=== PATIENT | male | born 1955 | race Caucasian/White ===

== ENCOUNTER → 2017-03-11 12:06 | Outpatient (CLI) | payer OTHER, SELFPAY ==
[2017-03-11 11:59] VITALS: BP 150/96; PULSE 70; RESP 18; TEMP 36.1; O2SAT 97; BMI 31.9
[2017-03-11] MEDS: Rabies Vaccine,Human Diploid 2.5 UNITS Vial IM (12:01)
== END ==
PROVIDERS: Family Provider Internal Medicine; PCP Internal Medicine; Visit Provider Emergency Medicine
DX: Z23 Encounter for immunization (principal)
CPT/HCPCS: 90675; 96372

== ENCOUNTER → 2017-03-15 17:40 | Outpatient (CLI) | payer OTHER, SELFPAY ==
[2017-03-15 17:14] VITALS: BP 161/91; PULSE 71; RESP 16; TEMP 36.1; O2SAT 98; BMI 31.9
== END ==
PROVIDERS: Family Provider Internal Medicine; PCP Internal Medicine; Visit Provider Emergency Medicine
DX: Z23 Encounter for immunization (principal)
CPT/HCPCS: 90675; 96372

== ENCOUNTER → 2017-03-22 19:46 | Outpatient (CLI) | payer OTHER, SELFPAY ==
[2017-03-22 19:20] VITALS: BP 150/75; PULSE 63; RESP 18; TEMP 36.7; O2SAT 100; BMI 27.5
[2017-03-22] MEDS: Rabies Vaccine,Human Diploid 2.5 UNITS Vial IM (19:20)
== END ==
PROVIDERS: Family Provider Internal Medicine; PCP Internal Medicine; Visit Provider Emergency Medicine
DX: Z23 Encounter for immunization (principal)
CPT/HCPCS: 90675; 96372

== ENCOUNTER 2021-06-17 10:14 | Emergency (ER) | payer OTHER, SELFPAY ==
[2021-06-17 10:14] VITALS: BP 173/104; PULSE 70; RESP 16; TEMP 36.3; O2SAT 98; BMI 31.8
--- NOTE | 2021-06-17 10:27 | CT_ITS ---
STUDY: CT ABDOMEN AND PELVIS WITHOUT CONTRAST REASON FOR EXAM: Male, 66 years old. Left flank pain and nausea. History of kidney stones. RADIATION DOSAGE (If Supplied By Facility): CTDIvol = ( 15.76 ) mGy, DLP = ( 866.04 ) mGycm TECHNIQUE: Transaxial images were obtained from the dome of the diaphragm to the symphysis pubis without oral contrast, and without intravenous contrast. Sagittal and coronal images were reconstructed. Individualized dose optimization techniques were used for this CT. COMPARISON: None. FINDINGS: The visualized lung bases are unremarkable. The visualized portions of the heart are within normal limits. There is decreased attenuation of the liver consistent with steatosis. Small gallstones. Normal spleen. Normal pancreas. Normal bilateral adrenal glands. There is a 5 mm calculus in the lower pole calyx of the right kidney as well as a 3 mm calculus in the upper pole calyx of the right kidney. Mild degree of left hydronephrosis and hydroureter due to a 7 mm calculus in the proximal left ureter. There is evidence of left perinephric and periureteric stranding. Normal visualized stomach. Normal small intestine. There are multiple colonic diverticula consistent with diverticulosis. The appendix is visualized and appears normal. There is scattered atherosclerotic calcification of the abdominal aorta, without a demonstrated aneurysm. Normal inferior vena cava. There is borderline retroperitoneal lymphadenopathy with enlarged nodes no greater than 10mm in the short axis diameter. Normal urinary bladder. The prostate measures 4 cm x 5 cm. Calcifications are seen within it. Small right inguinal hernia containing fat. There are diffuse degenerative changes of the visualized lumbar spine. CT/Abdomen/Pelvis without Cont IMPRESSION: 7 mm calculus in the proximal portion of the left ureter causing mild degree of left hydronephrosis and left proximal hydroureter ureter. Left perinephric stranding. Nonobstructive right intrarenal calculi. Diffuse fatty infiltration of the liver. I suspect small gallstones. Electronically Signed: Gianni Valentine MD at 11:16 EDT ,
--- NOTE | 2021-06-17 10:32 | EX.ED.DYSGE1 ---
HPI History of Present Illness Chief Complaint: Flank Pain Informant: patient Narrative Narrative: 66-year-old male presenting to the emergency room with left flank pain. Patient states that symptoms began abruptly this morning and rapidly became worse but are now improving. When the pain was at its most he was very nauseous. He states the pain reminded him very much of when he had a kidney stone in the past. He states that he did not require any surgery for it. He denies any blood in the urine or difficulty/change in urination. No change in bowel habits. No reported fevers. PFSH PFS Medical History (Updated 06/17/21 @ 11:[address] Bret Rosen DO) Kidney stone Ureterolithiasis Home Medications ondansetron 4 mg PO Q6H PRN PRN #10 tab 06/17/21 [Rx Last Taken Unknown] oxycodone-acetaminophen 1 tab PO Q6H PRN PRN 5 Days #20 tablet 06/17/21 [Rx Last Taken Unknown] Allergy/AdvReac Type Severity Reaction Status Date / Time Sulfa (Sulfonamide Allergy Unknown Unknown Verified 06/17/21 10:15 Antibiotics) Social History (Updated 06/17/21 @ 10:[address] Bret Rosen DO) current gender identity: male Smoking Status: Never smoker ROS [facility] ED Constitutional Constitutional ED: Denies chills, fever(s) or weight loss Eyes Eyes: Denies change in vision or diplopia ENT ENT ED: Denies ear pain, rhinorrhea or sore throat Cardiovascular Cardiovascular: Denies chest pain, orthopnea, palpitations or racing heartbeat Respiratory/Chest Respiratory/Chest: Denies cough, dyspnea or orthopnea Gastrointestinal Gastrointestinal: Reports abdominal pain and nausea; Denies diarrhea or vomiting Genitourinary Genitourinary ED: Denies dysuria, hematuria or urinary frequency Musculoskeletal Musculoskeletal: Reports back pain; Denies arthralgias or myalgias Integumentary Denies abscess or rash Neurologic Neurologic: Denies headache(s) or weakness Psychiatric Psychiatric: Denies anxiety, depression, suicidal ideation or suicidal thoughts Endocrine Endocrinology: Denies polydipsia, polyphagia or polyuria Allergic/Immunologic Allergic/Immunologic ED: Denies mouth swelling, tongue swelling or urticaria EXAM Physical Exam Const Vital Signs: 06/17/21 10:14 Temperature 97.3 F L Temperature Source Temporal Pulse Rate 70 Respiratory Rate 16 Blood Pressure 173/104 H Blood Pressure Mean 127 Pulse Ox 98 Oxygen Delivery Method Room Air Positive well nourished and well developed General Appearance ED: well developed HEENT Reports normocephalic, head/scalp atraumatic, TM's clear and moist mucous membranes Negative for trauma Tympanic Membrane ED: Yes TM's clear Eyes PERRL and EOMs intact bilaterally Neck no lymphadenopathy, supple and no JVD Resp normal respiratory effort and clear to auscultation bilaterally Cardio regular rate, regular rhythm and no murmurs GI normal to inspection, nondistended, normoactive bowel sounds and non-tender Palpation: soft Back/Spine no CVA tenderness and normal ROM Extremity normal to inspection General Extremety ED: Negative for edema General Extremity: Negative for edema Neuro oriented x3 and CN's II-XII intact bilaterally Sensorium / Orientation: alert Motor Exam: strength 5/5 throughout Psych mental status grossly normal Mood & Affect: Negative for depressed or tearful Skin no rashes or lesions noted and no wounds MDM MDM MDM Narrative Medical decision making narrative: White count is 9.3 with a creatinine of 1.05. CT pelvis demonstrates a 7 mm proximal ureteral stone on the left with associated hydronephroureter. Patient received a dose of Toradol and has been resting comfortably. I reviewed the case with on-call urologist Dr. Stock. Plan is to discharge the patient home with pain and nausea medication and have him follow-up in the office. Lab Data Attestation: I reviewed the patient's lab results. Labs: Laboratory Results - last 24 hr 06/17/21 06/17/21 10:39 10:39 WBC 9.3 RBC 5.42 Hgb 17.4 H Hct 46.6 MCV 86.0 MCH 32.1 H MCHC 37.3 H RDW Std Deviation 37.6 RDW Coeff of Jacki 12.0 Plt Count 208 MPV 10.5 Immature Gran % (Auto) 0.300 Neut % (Auto) 78.3 H Lymph % (Auto) 17.4 L [place] % (Auto) 3.1 Eos % (Auto) 0.4 Baso % (Auto) 0.5 Absolute Neuts (auto) 7.3 Absolute Lymphs (auto) 1.62 Nucleated RBC % 0 Sodium 138 Potassium 3.9 Chloride 104 Carbon Dioxide 30.0 Anion Gap 4 L BUN 17 Creatinine 1.05 Estim Creat Clear Calc 67.86 Est GFR (MDRD) Af Amer 91 Est GFR (MDRD) Non-Af 75 BUN/Creatinine Ratio 16.2 Glucose 129 H Calcium 8.9 Radiography Diagnostic Testing: Clinical Impression(s) from Imaging Studies Abdomen/Pelvis CT 06/17/21 10:27 IMPRESSION: 7 mm calculus in the proximal portion of the left ureter causing mild degree of left hydronephrosis and left proximal hydroureter ureter. Left perinephric stranding. Nonobstructive right intrarenal calculi. Diffuse fatty infiltration of the liver. I suspect small gallstones. Electronically Signed: Gianni Valentine MD at 11:16 EDT , Discharge Plan Triage Chief Complaint: Flank Pain ED Provider: Bret Rosen Dx/Rx/DC Orders Clinical Impression: Ureterolithiasis Instructions: ED Kidney Stone w/ Colic Prescriptions: New oxycodone-acetaminophen [oxycodone-acetaminophen] 1 TABLET tablet 1 tab PO Q6H PRN PRN (Reason: pain) 5 Days Qty: 20 RF: 0 ondansetron [ondansetron] 4 MG tablet 4 mg PO Q6H PRN PRN (Reason: Nausea) Qty: 10 RF: 0 Primary Care Provider: Laura Castelan Referrals: Omar Stock MD [STAFF PHYSICIAN] - As soon as possible Laura Castelan DO [Primary Care Provider] - Disposition Disposition: Home, Self Care
[2021-06-17] MEDS: Ketorolac 30 MG/ML Syringe IV (10:37)
[2021-06-17 10:48] LABS: Absolute Lymphocyte Count 1.62 X10^3/uL (0.83-4.51); Absolute Neutrophil Count 7.3 X10^3/uL (2.0-7.7); Basophil# 0.05 X10^3/uL; Basophil% 0.5 % (0-1); Eosinophil# 0.04 X10^3/uL; Eosinophils% 0.4 % (0-5); Hematocrit 46.6 % (40-54); Hemoglobin 17.4 g/dL (13.0-16.5); Lymphocyte # 1.62 X10^3/ul (0.83-4.51); Lymphocyte % 17.4 % (19-41); Mean Corp Hgb Conc 37.3 g/dL (32-36); Mean Corpuscular Hgb 32.1 pg (27.0-32.0); Mean Platelet Vol. 10.5 fl (6.2-12.0); Monocyte# 0.29 X10^3/uL; Monocyte% 3.1 % (0-10); NRBC Flagged by Analyzer 0 % (0-5); Neutrophil # 7.28 X10^3/uL (2.7-7.7); Neutrophil % 78.3 % (47-70); Platelet Count 208 K/mm3 (150-450); RBC Distribution Width SD 37.6 fl (35.1-43.9); Red Blood Count 5.42 M/mm3 (4.6-6.2); White Blood Count 9.3 K/mm3 (4.4-11.0)
[2021-06-17 11:00] LABS: Anion Gap 4 (5-15); BUN 17 mg/dL (7-18); BUN/Creat Ratio 16.2 RATIO (10-20); Calcium,Total 8.9 mg/dL (8.5-10.1); Chloride 104 mmol/L (98-107); Creatinine, Serum 1.05 mg/dL (0.70-1.30); EST Glomerular Filtration Rate 75 mL/min (>60); Est Glom Filt Rate - Afr Amer 91 mL/min (>60); Estimated Creatinine Clearance 67.86 ml/min; Glucose 129 mg/dL (74-106); Potassium 3.9 mmol/L (3.5-5.1); Sodium Level 138 mmol/L (136-145)
[2021-06-17 12:05] LABS: Color, Urine Yellow (Yellow); Glucose, Dipstick Normal (Normal); Ketone-Dipstick 5 mg/dl (Negative); Leukocyte Esterase-Dipstick 25 /ul (Negative); Nitrite-Dipstick Negative (Negative); Occult Blood-Urine 150 /ul (Negative); Protein-Dipstick 30 mg/dl (Negative); Specific Gravity, Urine 1.015 (1.002-1.030); Urine Bilirubin Dipstick Negative (Negative); Urine Clarity Clear (Clear); Urine Urobilinogen Normal (Normal); Urine pH 6.5 (5.0 - 8.0)
[2021-06-17 12:23] LABS: Bacteria 1+ /hpf (None Seen); Mucous, Urine 1+ /hpf (<or=2+); Red Blood Cells-Urine 25-50 SEEN /hpf (0-5); Squamous Epithelial Cells - UA 0-5 SEEN /hpf (0-5); White Blood Cells 5-10 SEEN /hpf (0-5)
== END 2021-06-17 12:03 | disposition home or self-care (01) ==
PROVIDERS: Emergency Provider Emergency Medicine; PCP Internal Medicine; Visit Provider Emergency Medicine
DX: N13.2 Hydronephrosis with renal and ureteral calculous obstruction (principal); Z79.899 Other long term (current) drug therapy; Z87.442 Personal history of urinary calculi
CPT/HCPCS: 74176; 80048; 81001; 85025; 96374; 99283; A4216

== ENCOUNTER 2021-06-19 11:42 | Observation (INO) | payer OTHER, SELFPAY ==
[2021-06-19] VITALS (7 sets, daily range): BP systolic 140–185; BP diastolic 83–114; PULSE 68–88; RESP 14–18; TEMP 36.3–37.1; O2SAT 92–99; BMI 31.9; BMI 33.5
--- NOTE | 2021-06-19 11:52 | EX.ED.GUMALE ---
HPI History of Present Illness Chief Complaint: Abd Pain Narrative Narrative: 56-year-old male presenting with left flank pain. Diagnosed with 7 mm kidney stone 2 days ago. He states he is taking oxycodone and still having breakthrough pain. He spoke with Dr. Stock prior to coming. Patient states his pain comes almost hourly. Breakthrough his pain medication. Patient denies any fever, chills. PFSH PFSH Medical History Kidney stone Ureterolithiasis Allergy/AdvReac Type Severity Reaction Status Date / Time Sulfa (Sulfonamide Allergy Unknown Unknown Verified 06/19/21 11:45 Antibiotics) Social History Smoking Status: Never smoker ROS ROS ED Constitutional Constitutional ED: Reports sweats; Denies chills or fever(s) Eyes Eyes: Denies blurry vision ENT ENT ED: Denies rhinorrhea or sore throat Cardiovascular Cardiovascular: Denies chest pain or palpitations Respiratory/Chest Respiratory/Chest: Denies cough or dyspnea Gastrointestinal Gastrointestinal: Reports nausea; Denies abdominal pain, diarrhea or vomiting Genitourinary Genitourinary ED: Reports hematuria; Denies dysuria Musculoskeletal Musculoskeletal: Reports other Details: Left flank pain Integumentary Denies rash Neurologic Neurologic: Denies headache(s) EXAM Physical Exam Const Vital Signs: 06/19/21 11:43 06/19/21 12:11 Temperature 97.4 F L 98.7 F Temperature Source Temporal Temporal Pulse Rate 77 79 Respiratory Rate 18 18 Blood Pressure 176/100 H 157/83 H Blood Pressure Mean 125 107 Pulse Ox 95 99 Oxygen Delivery Method Room Air Room Air Positive well nourished General Appearance ED: NAD; Negative for pallor HEENT Reports moist mucous membranes normocephalic and atraumatic Eyes PERRL and EOMs intact bilaterally General Eye ED: Negative for pale conjunctiva or scleral icterus Resp normal respiratory effort and clear to auscultation bilaterally Cardio regular rate and regular rhythm GI non-tender Palpation: soft no CVA tenderness Neuro oriented x3, CN's II-XII intact bilaterally, moves all extremities, no focal motor deficits and no sensory deficits noted Sensorium / Orientation: alert Psych mental status grossly normal Skin General Skin Exam: Negative for jaundice or pallor Lesions: no lesions Rashes: no rashes MDM MDM MDM Narrative Medical decision making narrative: Patient presenting with left flank pain which has been persistent even with oxycodone. I spoke with urology who recommend admitting the patient and they will take him to the OR later today to break up the stone and place a stent. Patient amenable to this. He is given morphine and Zofran. He is tested for COVID and is negative. Patient recently had lab work the other day which is within normal limits. CT scan was reviewed and shows a 7 mm proximal ureter stone with hydronephrosis and hydroureter. Urinalysis showed hematuria without evidence of infection. Patient transferred to the floor in stable condition. Impression: 1. Left-sided 7 mm proximal ureteral stone 2. Intractable flank pain 3. Hematuria 4. Left-sided hydronephrosis 5. Left-sided hydroureter Lab Data Attestation: I reviewed the patient's lab results. Discharge Plan Triage Chief Complaint: Abd Pain ED Provider: Madhu Reis Dx/Rx/DC Orders Primary Care Provider: Laura Castelan
[2021-06-19] MEDS: Morphine 4 MG/ML Syringe IV (12:09)
[2021-06-19] MEDS: Ondansetron 4 MG/2 ML Vial IV (12:09)
--- NOTE | 2021-06-19 15:46 | HP.PCM_ITS ---
HPI - General General Date of Admission: 06/19/21 HPI Narrative HIPOLITO TERRY, is a 66 M who presents from the emergency room is admitted directly from the emergency room with severe pain from a stone in the proximal left ureter plan to proceed with stent placement and shockwave lithotripsy today in the operating room at [facility]. [facility] Medical History Kidney stone Ureterolithiasis Home Medications ciprofloxacin HCl [Cipro] 500 mg PO BID #6 tab 06/19/21 [Rx Last Taken Unknown] ondansetron 4 mg PO Q6H PRN PRN 06/19/21 [History Last Taken 06/19/21] oxycodone-acetaminophen 1 tab PO Q4H PRN 7 Days #14 tab 06/19/21 [Rx Last Taken Unknown] oxycodone-acetaminophen 1 tab PO Q6H PRN PRN 06/19/21 [History Last Taken ] Allergy/AdvReac Type Severity Reaction Status Date / Time Sulfa (Sulfonamide Allergy Unknown Unknown Verified 06/19/21 11:45 Antibiotics) Social History Smoking Status: Never smoker Vital Signs Vital Signs Vital Signs: 06/19/21 11:43 06/19/21 12:11 06/19/21 14:20 Temperature 97.4 F L 98.7 F 97.9 F Temperature Source Temporal Temporal Oral Pulse Rate 77 79 68 Respiratory Rate 18 18 18 Blood Pressure 176/100 H 157/83 H 176/104 H Blood Pressure Mean 125 107 128 Blood Pressure Source Monitor Blood Pressure Position Sitting Blood Pressure Location Right Arm Pulse Ox 95 99 97 Oxygen Delivery Method Room Air Room Air Room Air Weight Weight: 100.2 kg Body Mass Index (BMI) 33.5 Results Lab / Micro Data Micro: Microbiology 06/19/21 12:00 Nasal Secretion SARS-CoV-2 Antigen (Rapid) - Final
--- NOTE | 2021-06-19 15:47 | PCM.DC ---
Discharge Instructions Diet Discharge Diet: No restrictions Activity Discharge Activity: Return to Normal Activity and May Not Drive (while taking narcotic pain medications.) Dressing / Incision Call your doctor if you observe: Fever of 101 or Higher Follow Up Care Please Follow Up With: Omar Stock MD When: Call [phone] for an appointment Test Results: Test results from this visit will be discussed in further detail at your follow-up appointment, if applicable. Discharge Plan Admission Admit Date/Time: 06/19/21 15:04 Primary Reason for Your Visit: kidney stone Attending Provider: Omar Stock Primary Care Provider: Laura Castelan Instructions Patient Instructions: Shock Wave Lithotripsy Discharge Orders/Prescriptions Prescriptions: New ciprofloxacin HCl [Cipro] 500 mg tablet 500 mg PO BID Qty: 6 RF: 0 oxycodone-acetaminophen 5-325 mg tablet 1 tab PO Q4H PRN (Reason: pain) 7 Days Qty: 14 RF: 0 Continued oxycodone-acetaminophen 5-325 mg tablet 1 tab PO Q6H PRN PRN (Reason: Pain) RF: 0 ondansetron 4 mg tablet,disintegrating 4 mg PO Q6H PRN PRN (Reason: Nausea) RF: 0 Referrals / Follow Up: Omar Stock MD [STAFF PHYSICIAN] - Laura Castelan DO [Primary Care Provider] - Disposition Discharge Orders: Discharge Patient (Routine); Ordered 06/19/21 Ordered By: Dr. Omar Stock
[2021-06-19] MEDS: Cefazolin 1 GM/50 ML BAG IV (15:50)
--- NOTE | 2021-06-19 16:45 | PCM.OPRPT ---
Report of Operation Date of Procedure: 06/19/21 Pre-Operative Diagnosis: Left renal calculi Post-Operative Diagnosis: Same Surgery/Procedure Performed:: Cystoscopy left stent placement and left extracorporeal shockwave lithotripsy Description of Surgical Findings:: Patient was taken back to the operating room after induction of general anesthesia, the patient was placed in dorsolithotomy position. The urethra and genitals were prepped and draped in usual sterile fashion. Using a 21 Filipino rigid cystourethroscope the entire length of the urethra was normal then went into the bladder. Identified the trigone the left and right ureteral orifice. I then cannulated the LEFT orifice and advanced a wire up into the kidney. I then backloaded a 5 Filipino open ended catheter over the wire and injected contrast to delineate the anatomy. After the retrograde was performed I then used fluoroscopic images and guidance to advanced a wire up into the kidney and over the 0.038 glidewire I advanced a 6 Filipino by 26 cm double pigtail stent. I then pulled the 0.038 Glidewire off and the stent coiled in the kidney bladder good position. Patient was taken back to the operating room, patient was identified by the nursing staff, we identified the side of the treatment and the patient side of treatment had been marked by my initials. The patient underwent general anesthetic and was placed supine on the lithotripter table. We then used fluoroscopy to identify the stone on the LEFT side. We then positioned the patient under the lithotripter and we used triangulation technique to identify the location of the stone and then we made sure that the stone was engaged in the F2 focal point of F2 Donier lithoprior machine. Once the patient was positioned appropriately and the stone was identified and placed in the F2 focal point of the lithotripter machine we then proceeded with shockwave lithotripsy. In the beginning the shockwave was delivered at a rate of 90 shocks per minute, we monitor the EKG for any ectopy. The power was slowly increased to 5 kV and subsequently at the 7 kV. We then proceeded with the treatment we move the therapy had around during the treatment to make sure the stone stayed in the F2 focal point during the entire treatment and after 3000 shockwaves were delivered to the stone under fluoroscopic guidance the treatment was completed. The patient was given instructions to call the office to make an a follow-up appointment with an xray to evaluate the success of the treatment, pateint understands that its possible the stones may need another procedure.At this point the patient's anesthetic was reversed patient was extubated and taken back to the PACU in stable condition. Surgeon: ANN Type of Anesthesia: General Drains: STENT LEFT SIDE Admit VTE Documentation VTE Present on Admission: No VTE Mechan Device Prophylaxis: SCD's VTE Pharm Prophylaxis ordered?: No
[2021-06-19] MEDS: Acetaminophen 325 MG Tablet 650 MG PO (17:55)
== END 2021-06-19 18:37 | disposition home or self-care (01) ==
LOC: ED 12:25 → MS3 15:16
PROVIDERS: Admitting Provider Urology; Emergency Provider Student in an Organized Health Care Education/Training Program; PCP Internal Medicine; Visit Provider Urology
PROC: (CPT 50590; principal; 2021-06-19 16:10)
DX: N13.2 Hydronephrosis with renal and ureteral calculous obstruction (principal)
CPT/HCPCS: 00873; 87811; 96374; 96375; 99285; A4216; C1769; C2617; J2405

== ENCOUNTER 2022-12-15 07:29 | Emergency (ER) | payer OTHER, SELFPAY ==
[2022-12-15 07:30] VITALS: BP 177/93; PULSE 74; RESP 14; TEMP 36.5; O2SAT 98; BMI 33.4
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
[2022-12-15] MEDS: Rabies Vaccine,Human Diploid 2.5 UNITS Vial IM (09:18)
[2022-12-15 09:29] VITALS: BP 134/78; PULSE 64; RESP 14; TEMP 37; O2SAT 99
== END 2022-12-15 09:35 | disposition home or self-care (01) ==
PROVIDERS: Emergency Provider Emergency Medicine; PCP Internal Medicine; Visit Provider Emergency Medicine
DX: S11.85XA Open bite of other specified part of neck, initial encounter (principal); E66.9 Obesity, unspecified; Z23 Encounter for immunization; X58.XXXA Exposure to other specified factors, initial encounter
CPT/HCPCS: 90675; 96372; 99283; 90375

== ENCOUNTER → 2022-12-17 | Outpatient (CLI) | payer OTHER, SELFPAY ==
[2022-12-17 09:25] VITALS: BP 142/75; PULSE 80; RESP 14; O2SAT 97; BMI 33.6
--- NOTE | 2022-12-17 10:02 | ED.RN ---
pt is here a day early, provider aware, ok to administer a day early.
[2022-12-17] MEDS: Rabies Vaccine,Human Diploid 2.5 UNITS Vial IM (10:15)
== END | disposition home or self-care (01) ==
PROVIDERS: PCP Internal Medicine; Visit Provider Emergency Medicine
DX: Z20.3 Contact with and (suspected) exposure to rabies (principal); Z23 Encounter for immunization
CPT/HCPCS: 90675; 96372

== ENCOUNTER → 2023-06-14 | Outpatient (CLI) | payer OTHER, SELFPAY ==
--- NOTE | 2023-06-14 15:05 | RAD_ITS ---
STUDY: X-RAY - ABDOMEN/PELVIS REASON FOR EXAM: Male, 68 years old. History of renal stone. TECHNIQUE: Two AP supine views of the abdomen and pelvis. COMPARISON: CT of the abdomen and pelvis dated June 17, 2021. FINDINGS: Ovoid 8 mm in diameter calcification projected over the region of the right proximal ureter. Normal bowel gas pattern. Moderate amount of feces in the colon. The visualized liver, spleen and kidneys are grossly normal in size and morphology. Normal soft tissue structures. Normal visualized osseous structures. RAD/Abdomen Single View IMPRESSION: 8 mm in diameter calcification projected over the right proximal ureter. No acute abnormality. Electronically Signed: Basilio Romero MD at 15:59 EDT ,
== END | disposition home or self-care (01) ==
LOC: RAD.FUTURE 14:43 → RAD 14:45
PROVIDERS: PCP Internal Medicine; Referring Provider Urology; Visit Provider Urology
DX: Z87.442 Personal history of urinary calculi (principal)
CPT/HCPCS: 74018

== ENCOUNTER → 2023-07-14 | Outpatient (CLI) | payer OTHER, SELFPAY ==
--- NOTE | 2023-07-14 09:20 | RAD_ITS ---
STUDY: X-RAY - ABDOMEN/PELVIS REASON FOR EXAM: Male, 68 years old. Follow-up of renal calculi. TECHNIQUE: Single AP view of the abdomen / pelvis on 2 images. COMPARISON: June 14, 2023 FINDINGS: Right ureteral catheter placed since the prior study with proximal tip projected over the right kidney and distal tip projected over the bladder. 2 calcifications projected over the upper right abdomen, one measuring 9 mm in diameter and projected over the lower pole of the right kidney and the other measuring 5 mm in diameter and projected adjacent to the right transverse process of L2 vertebral body. Calcification was noted on the prior study. Normal bowel gas pattern with air seen to the rectum. The visualized liver, spleen and kidneys are grossly normal in size and morphology. Lower lumbosacral spondylosis and arthrosis of both hips. Normal soft tissues otherwise. RAD/Abdomen Single View IMPRESSION: Right ureteral catheter placed with now 2 small calcifications as described projected over the upper right abdomen. Electronically Signed: Basilio Romero MD at 9:49 EDT ,
== END | disposition home or self-care (01) ==
LOC: RAD 09:03
PROVIDERS: PCP Internal Medicine; Referring Provider Urology; Visit Provider Urology
DX: N20.0 Calculus of kidney (principal)
CPT/HCPCS: 74018

== ENCOUNTER → 2023-07-26 | Outpatient (CLI) | payer OTHER, SELFPAY ==
[2023-07-26 10:59] LABS: Hematocrit 43.3 % (40-54); Hemoglobin 15.8 g/dL (13.0-16.5); Mean Corp Hgb Conc 36.5 g/dL (32-36); Mean Corpuscular Hgb 31.3 pg (27.0-32.0); Mean Corpuscular Volume 85.9 fL (80-94); Mean Platelet Vol. 10.2 fl (6.2-12.0); Platelet Count 188 K/mm3 (150-450); RBC Distribution Width CV 12.2 % (11.6-14.6); RBC Distribution Width SD 37.8 fl (35.1-43.9); Red Blood Count 5.04 M/mm3 (4.6-6.2)
[2023-07-26 11:22] LABS: Anion Gap 2 (5-15); BUN 17 mg/dL (7-18); BUN/Creat Ratio 19.9 RATIO (10-20); Calcium,Total 9.3 mg/dL (8.5-10.1); Chloride 105 mmol/L (98-107); Creatinine, Serum 0.85 mg/dL (0.70-1.30); EST Glomerular Filtration Rate 95 mL/min (>60); Est Glom Filt Rate - Afr Amer 115 mL/min (>60); Glucose 109 mg/dL (74-106); Potassium 4.2 mmol/L (3.5-5.1); Sodium Level 135 mmol/L (136-145)
== END | disposition home or self-care (01) ==
LOC: LAB 10:33
PROVIDERS: PCP Internal Medicine; Referring Provider Urology; Visit Provider Urology
DX: Z01.812 Encounter for preprocedural laboratory examination (principal)
CPT/HCPCS: 36415; 80048; 85027

== ENCOUNTER 2023-08-07 17:51 | Inpatient (IN) | payer OTHER, SELFPAY ==
[2023-08-07] VITALS (9 sets, daily range): BP systolic 101–139; BP diastolic 53–104; PULSE 91–119; RESP 16–20; TEMP 36.8–38; O2SAT 92–97; BMI 31.9; BMI 31.6
--- NOTE | 2023-08-07 18:33 | EKG12_ITS ---
Test Reason : DIZZINESS Blood Pressure : / mmHG Vent. Rate : 108 BPM Atrial Rate : 108 BPM P-R Int : 134 ms QRS Dur : 086 ms QT Int : 322 ms P-R-T Axes : 038 014 002 degrees QTc Int : 431 ms Sinus tachycardia Otherwise normal ECG Confirmed by Yong Cerna ([id number]), food expeditor WESTON LOTT ([id number]) on 08/09/2023 8:02:32 AM Referred By: Confirmed By:Yong Cerna
--- NOTE | 2023-08-07 18:35 | EX.ED.DYSGE1 ---
HPI History of Present Illness Chief Complaint: General Illness Narrative Narrative: This is a 68-year-old male who presents to the emergency department for generalized malaise. The patient states over the past 3 days he has had generalized abdominal discomfort. He has no focal pain, but states he feels unwell as if he has to vomit. He has had some nausea but not has not actually vomited. Patient also states he is woke up with sweats every morning. He has no documented fevers at home. Patient has not had any diarrhea or constipation. No urinary symptoms such as frequency, urgency or dysuria. No respiratory infectious symptoms such as cough, congestion or sore throat. No back or flank pain. He does report some dizziness but no chest pain, shortness of breath or palpitations. The patient recently had lithotripsy and ureteral stent for kidney stones. He states he did take 1 dose of ciprofloxacin after coming home from his procedure, but never completed his entire course of ciprofloxacin prescribed by his urologist. [facility] Medical History Ureterolithiasis Kidney stone Home Medications ?Medication ?Instructions ?Recorded ?Last Taken ?Type lisinopril 10 mg tablet 10 mg PO DAILY 08/07/23 Unknown History Allergy/AdvReac Type Severity Reaction Status Date / Time Sulfa (Sulfonamide Allergy Unknown Unknown Verified 08/07/23 17:56 Antibiotics) Social History Smoking Status: Never smoker [facility] ED Constitutional Constitutional ED: Reports sweats; Denies chills or fever(s) ENT ENT ED: Denies ear pain, rhinorrhea or sore throat Cardiovascular Cardiovascular: Denies chest pain or palpitations Respiratory/Chest Respiratory/Chest: Denies cough or dyspnea Gastrointestinal Gastrointestinal: Reports nausea; Denies abdominal pain, constipation, diarrhea or vomiting Genitourinary Genitourinary ED: Denies dysuria, hematuria or urinary frequency Musculoskeletal Musculoskeletal: Denies myalgias or neck pain Integumentary Denies rash Neurologic Neurologic: Denies headache(s) EXAM Physical Exam Const Vital Signs: 08/07/23 17:53 08/07/23 17:55 08/07/23 18:34 Temperature 98.2 F 98.2 F Temperature Source Temporal Temporal Pulse Rate 119 H 119 H Respiratory Rate 18 17 Respiratory Pattern Normal Blood Pressure 108/88 H 108/88 H Blood Pressure Mean 94 94 Pulse Ox 95 95 Oxygen Delivery Method Room Air Room Air 08/07/23 19:40 08/07/23 20:00 08/07/23 21:00 Temperature 99.7 F H 99.5 F H 99.5 F H Temperature Source Oral Oral Oral Pulse Rate 96 101 H 96 Respiratory Rate 16 16 18 Respiratory Pattern Blood Pressure 139/65 H 128/73 H 137/70 H Blood Pressure Mean 89 91 92 Pulse Ox 92 93 94 Oxygen Delivery Method Room Air Room Air Room Air Positive well nourished, well developed, oriented x3 and healthy appearing General Appearance ED: active, cooperative and well developed Orientation / Consciousness: awake and oriented to person Exam Limitations: no limitations Nutritional Appearance: Negative for overweight HEENT Reports normocephalic, head/scalp atraumatic, TM's clear, moist mucous membranes, nasal mucous membranes and turbinates normal and oropharynx normal normocephalic, normal to inspection and atraumatic Face and Sinus: normal facial exam Nose: external nose normal and nares normal External Ear: external ears normal Tympanic Membrane ED: Yes TM's clear Mouth ED: Yes oral and palatal mucosa normal, Yes lips normal and Yes tongue normal Mouth: oral and palatal mucosa normal, lips normal and tongue normal Throat: posterior oropharynx normal Eyes PERRL, EOMs intact bilaterally and conjunctivae normal General Eye ED: Yes normal appearance of both eyes Visual Acuity: acuity normal Eyelid: eyelids normal Conjunctiva: conjunctiva normal Sclera: sclera normal Cornea: cornea normal Pupil: PERRL and accommodation reflex normal EOM: EOM abnormal Neck full ROM Lymph Lymphatic: no lymphadenopathy noted Chest Wall inspection of chest normal Chest: abnormal inspection of the chest Resp normal respiratory effort and normal air movement Effort and Inspection: able to speak in complete sentences and symmetric chest movement Auscultation: clear to auscultation bilaterally Cardio regular rate and regular rhythm Rate: regular rate Peripheral Pulses: pulses 2+ throughout GI normal to inspection, nondistended, normoactive bowel sounds, non-tender and non-distended Palpation: soft Rectal Exam: deferred no CVA tenderness Back/Spine normal ROM and normal to inspection Cervical Spine: cervical ROM normal Extremity normal to inspection, full ROM and normal capillary refill Neuro oriented x3, CN's II-XII intact bilaterally, moves all extremities and no focal motor deficits Sensorium / Orientation: awake and alert Motor Exam: strength 5/5 throughout Psych mental status grossly normal Appearance: grossly normal and appropriate Speech: normal speech Skin no rashes or lesions noted Skin Narrative: diaphoretic Sepsis Attestation Sepsis Alert: Yes Sepsis Attestation: Agree w/Sepsis Date exam was performed: 08/07/23 Time exam was performed: 21:48 Possible Source of Sepsis: Genitourinary Sepsis Organ Dysfunction Criteria Present: Total Bilirubin > 2 mg/dl Fluid Resuscitation Fluid Resuscitation ordered: Lesser volume fluid bolus ordered Amount of fluid ordered: 1,000 Reason for lesser fluid bolus:: Other (Patient initially only ordered 1 L fluid as he was not hypotensive in the ED. Once infection confirmed, patient ordered full 30 cc/kg fluid bolus) Sepsis Note Date exam was performed: 08/07/23 Time exam was performed: 08:55 Sepsis Attestation: Sepsis re-evaluation was performed MDM MDM MDM Narrative Medical decision making narrative: 68-year-old male presents to the emergency department for generalized malaise, nausea, vomiting and diaphoresis. Patient was tachycardic initially on arrival but not febrile. Concern for possible infectious etiology given the diaphoresis and subjective fevers at home. Lab work confirms leukocytosis with a white count of 21. The patient's urinalysis does have 25 leukocytes but no bacteria seen. However on CT of the abdomen pelvis there is enhancement of the right kidney likely representing lobar nephronia and pyelonephritis with no evidence of abscess at this time. With findings of /renal infection, patient was started on antibiotics, 1 g of Rocephin. He was given the full 30 cc/kg bolus of IV fluids as well. Patient did have 1 episode of vomiting in the ED and was given Zofran. At 2100 on repeat vital signs he had elevated temperature 99.5 and was given Tylenol as well. Overall, I am concerned for possible sepsis secondary to right-sided pyelonephritis and I do feel patient will benefit from IV antibiotics and admission. I spoke with the hospitalist, Dr. Mike for admission. Patient and his updated on findings and agreeable with the plan for admission. All questions answered. IMPRESSIONS: 1. Sepsis 2. Right pyelonephritis 3. Hyponatremia 4. Hyperbilirubemia 5. Nausea and vomiting Lab Data Labs: Laboratory Results - last 24 hr 06/23/24 06/23/24 19:10 19:22 WBC 21.0 H RBC 4.66 Hgb 14.5 Hct 39.9 L MCV 85.6 MCH 31.1 MCHC 36.3 H RDW Std Deviation 38.4 RDW Coeff of Jacki 12.3 Plt Count 141 L MPV 10.9 Immature Gran % (Auto) 1.100 H Neut % (Auto) 86.3 H Lymph % (Auto) 4.0 L [place] % (Auto) 7.8 Eos % (Auto) 0.2 Baso % (Auto) 0.6 Absolute Neuts (auto) 18.1 H Absolute Lymphs (auto) 0.83 Nucleated RBC % 0 Differential Comment SCANNED Diff Path Review June foll Sodium 128 L Potassium 3.7 Chloride 96 L Carbon Dioxide 25.0 Anion Gap 7 BUN 30 H Creatinine 1.14 Estim Creat Clear Calc 70.39 Est GFR (MDRD) Af Amer 82 Est GFR (MDRD) Non-Af 68 BUN/Creatinine Ratio 26.3 H Glucose 127 H Lactic Acid 1.2 Calcium 8.5 Total Bilirubin 2.10 H AST 41 H ALT 31 Alkaline Phosphatase 91 Troponin I High Sens 13 Total Protein 7.0 Albumin 2.9 L Globulin 4.1 Albumin/Globulin Ratio 0.7 L Urine Color Yellow Urine Clarity Sl. Cloudy Urine pH 6.0 Ur Specific [place] 1.015 Urine Protein 500 H Urine Glucose (UA) Normal Urine Ketones 5 H Urine Occult Blood 150 H Urine Nitrite Negative Urine Bilirubin 1 H Urine Urobilinogen 4 H Ur Leukocyte Esterase 25 H Urine RBC 5-10 SEEN Urine WBC 0-5 SEEN Ur Squamous Epith Cells 0-5 SEEN Amorphous Sediment 1+ URATE Urine Bacteria 0 SEEN Urine Mucus 0 SEEN Radiography Chest X-Ray - ED: 1 View, Read by ED Physician and Normal Diagnostic Testing: Clinical Impression(s) from Imaging Studies Chest X-Ray 08/07/23 19:20 IMPRESSION: No radiographic evidence of acute cardiopulmonary disease. Electronically Signed: Hill Sullivan MD at 19:58 EDT , Abdomen/Pelvis CT 08/07/23 20:14 IMPRESSION: Focal masslike area of decreased enhancement in the right kidney which may represent lobar nephronia. There are other patchy areas of decreased enhancement in the right kidney compatible with pyelonephritis. There is no evidence of an abscess. No other acute abnormalities are identified. Electronically Signed: Hill Sullivan MD at 21:09 EDT , Discharge Plan Triage Chief Complaint: General Illness ED Provider: Fiorella Spencer Dx/Rx/DC Orders Primary Care Provider: Laura Castelan
[2023-08-07] MEDS: 0.9% Normal Saline (1000mL) 1,000 ML 1000 ML IV (19:14)
[2023-08-07] MEDS: Ondansetron 4 MG/2 ML Vial IV ×2 (19:15→21:18)
--- NOTE | 2023-08-07 19:20 | RAD_ITS ---
EXAM: XR CHEST, 1 VIEW CLINICAL INDICATION: dizziness, tachycardia TECHNIQUE: Frontal view of the chest. COMPARISON: No relevant prior studies available. FINDINGS: LUNGS AND PLEURAL SPACES: Unremarkable. No consolidation or edema. No pneumothorax. No effusion. HEART: Unremarkable. Cardiac silhouette not enlarged. MEDIASTINUM: Central airways and mediastinal contour are unremarkable. BONES/JOINTS: Unremarkable. No acute fracture. SOFT TISSUES: Unremarkable. RAD/Chest 1 View (Portable) IMPRESSION: No radiographic evidence of acute cardiopulmonary disease. Electronically Signed: Hill Sullivan MD at 19:58 EDT ,
[2023-08-07 19:30] LABS: Bacteria 0 SEEN /hpf (None Seen); Mucous, Urine 0 SEEN /hpf (<or=2+)
[2023-08-07 19:37] LABS: Absolute Lymphocyte Count 0.83 X10^3/uL (0.83-4.51); Absolute Neutrophil Count 18.1 X10^3/uL (2.0-7.7); Basophil# 0.12 X10^3/uL; Basophil% 0.6 % (0-1); Eosinophil# 0.04 X10^3/uL; Eosinophils% 0.2 % (0-5); Hematocrit 39.9 % (40-54); Hemoglobin 14.5 g/dL (13.0-16.5); Lymphocyte # 0.83 X10^3/ul (0.83-4.51); Mean Corp Hgb Conc 36.3 g/dL (32-36); Mean Corpuscular Hgb 31.1 pg (27.0-32.0); Mean Corpuscular Volume 85.6 fL (80-94); Mean Platelet Vol. 10.9 fl (6.2-12.0); Monocyte# 1.63 X10^3/uL; Monocyte% 7.8 % (0-10); NRBC Flagged by Analyzer 0 % (0-5); Neutrophil # 18.11 X10^3/uL (2.7-7.7); Neutrophil % 86.3 % (47-70); POSITIVE DIFFERENTIAL YES; Platelet Count 141 K/mm3 (150-450); RBC Distribution Width CV 12.3 % (11.6-14.6); RBC Distribution Width SD 38.4 fl (35.1-43.9); Red Blood Count 4.66 M/mm3 (4.6-6.2)
[2023-08-07 19:38] LABS: Differential Indicated SCAN CRITERIA MET
[2023-08-07 19:43] LABS: Color, Urine Yellow (Yellow); Glucose, Dipstick Normal (Normal); Ketone-Dipstick 5 mg/dl (Negative); Leukocyte Esterase-Dipstick 25 /ul (Negative); Nitrite-Dipstick Negative (Negative); Occult Blood-Urine 150 /ul (Negative); Protein-Dipstick 500 mg/dl (Negative); Specific Gravity, Urine 1.015 (1.002-1.030); Urine Bilirubin Dipstick 1 mg/dL (Negative); Urine Clarity Sl. Cloudy (Clear); Urine Urobilinogen 4 mg/dl (Normal)
[2023-08-07 19:44] LABS: Red Blood Cells-Urine 5-10 SEEN /hpf (0-5); Squamous Epithelial Cells - UA 0-5 SEEN /hpf (0-5); White Blood Cells 0-5 SEEN /hpf (0-5)
[2023-08-07 19:45] LABS: Amorphous Sediment 1+ URATE
[2023-08-07 19:52] LABS: Lactic Acid 1.2 mmol/L (0.4-1.9)
[2023-08-07 19:53] LABS: ALB/GLOB Ratio 0.7 RATIO (0.9-2.4); AST(SGOT) 41 U/L (15-37); Alanine Aminotransfer ALT/SGPT 31 U/L (16-61); Albumin, Serum 2.9 g/dL (3.2-5.0); Alkaline Phosphatase 91 U/L (45-117); Anion Gap 7 (5-15); BUN 30 mg/dL (7-18); BUN/Creat Ratio 26.3 RATIO (10-20); Calcium,Total 8.5 mg/dL (8.5-10.1); Chloride 96 mmol/L (98-107); Creatinine, Serum 1.14 mg/dL (0.70-1.30); EST Glomerular Filtration Rate 68 mL/min (>60); Est Glom Filt Rate - Afr Amer 82 mL/min (>60); Estimated Creatinine Clearance 70.39 ml/min; Globulin 4.1 g/dL (2.2-4.2); Glucose 127 mg/dL (74-106); Potassium 3.7 mmol/L (3.5-5.1); Sodium Level 128 mmol/L (136-145); Troponin-I HS 13 pg/mL (3.0-78.0)
[2023-08-07 20:03] LABS: Differential Comment SCANNED
--- NOTE | 2023-08-07 20:14 | CT_ITS ---
EXAM: CT ABDOMEN AND PELVIS WITH INTRAVENOUS CONTRAST CLINICAL INDICATION: abdominal pain, fevers, nausea, leukocytosis TECHNIQUE: Helically acquired images were obtained of the abdomen and pelvis with intravenous contrast. This CT exam was performed using one or more of the following dose reduction techniques: automated exposure control, adjustment of the mA and/or kV according to patient size, and/or use of iterative reconstruction technique. CONTRAST: IV 100mL Isovue-370 COMPARISON: 06/17/2021 FINDINGS: LOWER THORAX: Unremarkable. Lung bases are clear. No cardiomegaly. No significant pericardial effusion. ABDOMEN: LIVER: Unremarkable. Homogeneous. No focal mass. GALLBLADDER AND BILE DUCTS: Unremarkable. No calcified gallstones. No gallbladder distention or wall edema. No intra- or extrahepatic biliary ductal dilation. PANCREAS: Unremarkable. No focal cystic or solid mass. SPLEEN: Unremarkable. Normal size without focal cystic or solid mass. ADRENALS: Unremarkable. No nodules. KIDNEYS AND URETERS: There is a focal masslike area of decreased density in the lateral right kidney that measures 2.9 x 3.3 x 3 x 5 cm which may represent lobar nephronia. There is minimal perinephric inflammation present. There are additional areas of decreased enhancement in the right kidney compatible with pyelonephritis. There is no discrete abscess identified. Normal renal size and position. No hydronephrosis. STOMACH AND BOWEL: Unremarkable. No stomach or bowel distention. No focal inflammatory change. PELVIS: APPENDIX: No evidence of acute appendicitis. BLADDER: Unremarkable. REPRODUCTIVE: Unremarkable as visualized. No mass. ABDOMEN and PELVIS: INTRAPERITONEAL SPACE: Unremarkable. No ascites or other fluid collection. No free air. BONES/JOINTS: Unremarkable. No suspicious lytic or blastic abnormality. SOFT TISSUES: Unremarkable. No discrete abdominal or pelvic wall hernia. VASCULATURE: Unremarkable. Abdominal aorta is non-dilated. LYMPH NODES: Unremarkable. No enlarged lymph nodes. CT/Abdomen/Pelvis W IV Cont ONLY IMPRESSION: Focal masslike area of decreased enhancement in the right kidney which may represent lobar nephronia. There are other patchy areas of decreased enhancement in the right kidney compatible with pyelonephritis. There is no evidence of an abscess. No other acute abnormalities are identified. Electronically Signed: Hill Sullivan MD at 21:09 EDT ,
[2023-08-07] MEDS: Acetaminophen 325 MG Tablet 650 MG PO (20:56)
--- NOTE | 2023-08-07 21:28 | HP.PCM.HOS_ITS ---
HPI - General General Date of Admission: 08/07/23 Date of Service: 08/07/23 Chief Complaint: Malaise and Abdominal Pain. HPI Narrative HIPOLITO TERRY, is a 68 M with a past medical history of essential hypertension, obesity; with BMI of 31.9 this admission and renal calculi and ureterolithiasis; with recent lithotripsy and Right ureteral stent done by urology after which he was prescribed oral Cipro for which he only took one dose since his procedure who presents to [facility] ER complaining of malaise and abdominal pain. Mr. Terry reports his symptoms began approximately 3 days prior to admission with the gradual-onset of generalized abdominal pain that was moderate, cramping and intermittent with subsequent nausea and mild dizziness. He denies associated vomiting, fever, back pain, flank pain, dysuria or hematuria but he does admit to waking up in the morning with sheets so soaked with sweat that he could wring them out. In the ER he was noted to have CT evidence of a focal masslike area of decreased density in the lateral Right kidney that measures ~2.9 cm x ~3.3 cm x ~3.5 cm which may represent lobar nephronia with additional areas of decreased enhancement in the Right kidney compatible with Pyelonephritis with no discrete abscess identified and no other acute pathologic changes noted. In the ER he was noted to have severe leukocytosis of 21K present on admission with an elevated temperature of 99.5 degrees Fahrenheit and heart rate > 90 bpm triggering sepsis criteria in the setting of medical noncompliance with antibiotics after recent recent Lithotripsy with Right ureteral stent placement and he was then admitted to the PCU for ongoing care for a stay that is expected to extend beyond 2 midnights. [facility] Medical History Ureterolithiasis Kidney stone Home Medications ?Medication ?Instructions ?Recorded ?Last Taken ?Type lisinopril 10 mg tablet 10 mg PO DAILY 08/07/23 Unknown History Allergy/AdvReac Type Severity Reaction Status Date / Time Sulfa (Sulfonamide Allergy Unknown Unknown Verified 08/07/23 17:56 Antibiotics) Social History Smoking Status: Never smoker ROS ROS Narrative Review of systems: General: Patient admits to sweats as per HPI but denies chills or fever. HENT: Denies headache, denies stuffy nose, denies sore throat EYES: Denies changes in vision or discharge from eyes. Resp: Denies cough, denies shortness of breath Cardiac: Denies chest pain, Palpitations or heart racing. GI: Patient admits to nausea but denies abdominal pain, constipation, diarrhea or vomiting. : Denies changes in urination Extremity: Denies swelling Musculoskeletal: Feels somewhat generally weak and unwell but he denies arthralgias or myalgias. Neuro: Patient denies headache, paresthesias or focal neurologic deficits. Heme: Denies any bleeding or bruising Skin: Denies rashes Psychiatric: No complaints voiced related to uncontrolled depression or anxiety. Endocrine: No polyuria, polydipsia or polyphagia The rest of the 14 point ROS was negative except for positives in HPI. Vital Signs Vital Signs Vital Signs: 08/07/23 17:53 08/07/23 17:55 08/07/23 18:34 Temperature 98.2 F 98.2 F Temperature Source Temporal Temporal Pulse Rate 119 H 119 H Respiratory Rate 18 17 Respiratory Pattern Normal Blood Pressure 108/88 H 108/88 H Blood Pressure Mean 94 94 Pulse Ox 95 95 Oxygen Delivery Method Room Air Room Air 08/07/23 19:40 08/07/23 20:00 08/07/23 21:00 Temperature 99.7 F H 99.5 F H 99.5 F H Temperature Source Oral Oral Oral Pulse Rate 96 101 H 96 Respiratory Rate 16 16 18 Respiratory Pattern Blood Pressure 139/65 H 128/73 H 137/70 H Blood Pressure Mean 89 91 92 Pulse Ox 92 93 94 Oxygen Delivery Method Room Air Room Air Room Air Weight Weight: 210 lb Body Mass Index (BMI) 31.9 Physical Exam Const alert, oriented x3, no apparent distress and average body habitus General Appearance: cooperative HEENT normocephalic, head/scalp atraumatic, hearing grossly normal bilaterally and moist oral mucous membranes Eyes PERRL and EOMs intact bilaterally Neck no lymphadenopathy and supple Resp normal respiratory effort, no retractions, no use of accessory muscles and clear to auscultation bilaterally Cardio regular rate and regular rhythm GI normal to inspection, nondistended, normoactive bowel sounds, soft to palpation, non-tender and non-distended Extremity normal to inspection and full ROM Skin Skin Narrative: Patient has no evidence of abscess, jaundice and rash. Neuro oriented x3, CN's II-XII intact bilaterally, moves all extremities and no focal motor deficits Sensorium / Orientation: awake, alert, oriented to person, oriented to place and oriented to time Speech: speech normal Psych affect normal Results Medical Records Data Attestation: I reviewed the patient's medical records Lab / Micro Data Attestation: I reviewed the patient's lab results. 08/07/23 19:10 08/07/23 19:10 Labs: Laboratory Results - last 24 hr 08/07/23 19:10: WBC 21.0 H, RBC 4.66, Hgb 14.5, Hct 39.9 L, MCV 85.6, MCH 31.1, MCHC 36.3 H, RDW Std Deviation 38.4, RDW Coeff of Jacki 12.3, Plt Count 141 L, MPV 10.9, Immature Gran % (Auto) 1.100 H, Neut % (Auto) 86.3 H, Lymph % (Auto) 4.0 L , [place] % (Auto) 7.8, Eos % (Auto) 0.2, Baso % (Auto) 0.6, Absolute Neuts (auto) 18.1 H, Absolute Lymphs (auto) 0.83, Nucleated RBC % 0, Differential Comment SCANNED, Diff Path Review June, Sodium 128 L, Potassium 3.7, Chloride 96 L, Carbon Dioxide 25.0, Anion Gap 7, BUN 30 H, Creatinine 1.14, Estim Creat Clear Calc 70.39, Est GFR (MDRD) Af Amer 82, Est GFR (MDRD) Non-Af 68, BUN/Creatinine Ratio 26.3 H, Glucose 127 H, Lactic Acid 1.2, Calcium 8.5, Total Bilirubin 2.10 H, AST 41 H, ALT 31, Alkaline Phosphatase 91, Troponin I High Sens 13, Total Protein 7.0, Albumin 2.9 L, Globulin 4.1, Albumin/Globulin Ratio 0.7 L 08/07/23 19:22: Urine Color Yellow, Urine Clarity Sl. Cloudy, Urine pH 6.0, Ur Specific [place] 1.015, Urine Protein 500 H, Urine Glucose (UA) Normal, Urine Ketones 5 H, Urine Occult Blood 150 H, Urine Nitrite Negative, Urine Bilirubin 1 H, Urine Urobilinogen 4 H, Ur Leukocyte Esterase 25 H, Urine RBC 5-10 SEEN, Urine WBC 0-5 SEEN, Ur Squamous Epith Cells 0-5 SEEN, Amorphous Sediment 1+ URATE, Urine Bacteria 0 SEEN, Urine Mucus 0 SEEN Imaging Radiology Impression Chest X-Ray 08/07/23 19:20 IMPRESSION: No radiographic evidence of acute cardiopulmonary disease. Electronically Signed: Hill Sullivan MD at 19:58 EDT , Abdomen/Pelvis CT 08/07/23 20:14 IMPRESSION: Focal masslike area of decreased enhancement in the right kidney which may represent lobar nephronia. There are other patchy areas of decreased enhancement in the right kidney compatible with pyelonephritis. There is no evidence of an abscess. No other acute abnormalities are identified. Electronically Signed: Hill Sullivan MD at 21:09 EDT , Assessment & Plan Assessment/Plan (1) Pyelonephritis of right kidney: (2) Sepsis: QUALIFIERS: Sepsis acute organ dysfunction status: without acute organ dysfunction Sepsis type: sepsis due to unspecified organism Qualified Code(s): A41.9 - Sepsis, unspecified organism (3) Medical non-compliance: (4) Ureteral stent present: (5) History of lithotripsy: (6) Hyponatremia: (7) Obesity (BMI 30.0-34.9): PLAN: Plan 1. CT evidence of Right pyelonephritis with leukocytosis of 21K present on admission with patient triggering Sepsis criteria - Admit to PCU for treatment under the Sepsis protocol. Continue broad-spectrum antibiotics with IV Zosyn and await culture and sensitivity data. Give Zofran IV prn nausea. Give Tylenol prn for [id number] (level 1-5/10) pain or fever. Give Morphine IV prn for severe (level 6-10/10) pain. 2. Recent lithotripsy with Right ureteral stent placement followed by medical noncompliance with prescribed post-procedure Cipro precipitating #1 - Patient was encouraged to take his medications as prescribed in an effort to minimize any potential similar future episodes. 3. Mild Hyponatremia of 128 mmol/L present on admission complicating #1 & #2 - Give NS IVF and then recheck BMP in the AM to ensure improvement. 4. Obesity; with BMI of 31.9 this admission - Weight loss will be recommended. Check TSH. 5. Essential Hypertension - Hold Lisinopril until infection outlined in #1 has been neutralized. 6. Hyperbilirubinemia of 2.1 mg/dL present on admission - Incidentally noted with no signs of acute liver pathology on CT. Likely related to #1. Recheck CMP in the AM to follow trend. 7. Mild thrombocytopenia of 141 K present on admission - Noted. Check CBC daily to follow trend. 8. DVT prophylaxis - Heparin 5,000 units sq BID plus SCD's. Total time: Approximately 75 minutes. Sepsis Attestation Sepsis Alert: Yes Sepsis Attestation: Sepsis Ruled Out Date exam was performed: 08/07/23 Time exam was performed: 22:00 Possible Source of Sepsis: Genitourinary Sepsis Organ Dysfunction Criteria Present: None Fluid Resuscitation Fluid resuscitation indicated?: Yes Fluid Resuscitation ordered: 30 ml/kg fluid bolus ordered Amount of fluid ordered: 3 Sepsis Note Date exam was performed: 08/08/23 Time exam was performed: 02:00 Sepsis Attestation: Sepsis re-evaluation was performed Response to fluids: Fluid responsive hypotension Charges/Coding Visit Charges Inpatient E&M: 21120 Init Hosp L3
[2023-08-07] MEDS: Ceftriaxone 1 GM/50 ML BAG IV (21:29)
[2023-08-07] MEDS: 0.9% Normal Saline (1000mL) 1,000 ML 999 ML IV ×2 (22:02→23:08)
[2023-08-07] MEDS: Lactobacillis Acidophilus 2 CAP PO (23:01)
[2023-08-07] MEDS: Piperacil/Tazobactam 3.375 GM in 0.9% Normal Saline (50mL MB+) 50 ML IV (23:09)
[2023-08-07 23:14] LABS: Lactic Acid 1.7 mmol/L (0.4-1.9)
[2023-08-07 23:38] LABS: Magnesium 2.1 mg/dL (1.6-2.6); Phosphorus 2.7 mg/dL (2.5-4.9); Prealbumin 7.9 mg/dL (20.0-40.0)
[2023-08-08] VITALS (8 sets, daily range): BP systolic 123–155; BP diastolic 66–72; PULSE 79–101; RESP 16–18; TEMP 36.7–38.5; O2SAT 95–98
[2023-08-08] MEDS: Ondansetron 4 MG/2 ML Vial IV ×2 (02:31→09:13)
[2023-08-08] MEDS: 0.9% Saline Lock 10 ML Syringe IV (02:31)
[2023-08-08] MEDS: Piperacil/Tazobactam 3.375 GM in 0.9% Normal Saline (50mL MB+) 50 ML IV ×3 (06:17→21:04)
[2023-08-08 08:20] LABS: Hematocrit 35.2 % (40-54); Mean Corp Hgb Conc 36.9 g/dL (32-36); Mean Corpuscular Volume 86.7 fL (80-94); Mean Platelet Vol. 10.9 fl (6.2-12.0); Platelet Count 117 K/mm3 (150-450); RBC Distribution Width CV 12.3 % (11.6-14.6); RBC Distribution Width SD 39.2 fl (35.1-43.9); Red Blood Count 4.06 M/mm3 (4.6-6.2); White Blood Count 14.1 K/mm3 (4.4-11.0)
[2023-08-08 09:08] LABS: Anion Gap 7 (5-15); BUN 22 mg/dL (7-18); BUN/Creat Ratio 22.1 RATIO (10-20); Calcium,Total 7.7 mg/dL (8.5-10.1); Chloride 98 mmol/L (98-107); EST Glomerular Filtration Rate 80 mL/min (>60); Est Glom Filt Rate - Afr Amer 96 mL/min (>60); Estimated Creatinine Clearance 79.87 ml/min; Glucose 114 mg/dL (74-106); Potassium 3.5 mmol/L (3.5-5.1); Sodium Level 128 mmol/L (136-145)
[2023-08-08] MEDS: Ascorbic Acid 500 MG Tablet 1000 MG PO ×2 (09:13→17:13)
[2023-08-08] MEDS: Acetaminophen 325 MG Tablet 650 MG PO ×2 (09:13→17:13)
[2023-08-08] MEDS: Cholecalciferol (Vit D3) 125 MCG CAPSULE (5,000 UNITS) PO (09:14)
[2023-08-08] MEDS: Zinc Sulfate 50 mg zinc (220 mg) ORAL capsule PO (09:14)
[2023-08-08] MEDS: Lactobacillis Acidophilus 2 CAP PO ×2 (09:14→21:04)
--- NOTE | 2023-08-08 10:45 | CASEMGMT ---
RN CM Face to Face with patient for initial transition planning/care coordination assessment. RN CM introduced self and role at [facility]. Patient lying in bed, alert and oriented. Patient willing to participate in assessment and is able to answer all questions appropriately. Care providers, pharmacy, and demographics verified. PCP: Annelise Specialists: Montrell, urologist Preferred Pharmacy: [facility] Insurance: MMO Prescription Benefit: yes Living Will/HPOA: none LNOK: ex- Living Arrangements: Patient lives alone in a 2 story home with bed and bath on first floor, 3 steps and railing to enter the home. Patient states he is independent Transportation: self, ex DME/HHC: Patient denies DME in the home. No previous HHC or SNF Patient wishes to discharge home, denies need for home health at this time. Patient states he has no further needs or concerns at this time. CM to follow for discharge planning needs that may arise. Disposition Plan: Patient to discharge home with family support and follow-up plans in place. Martha LÓPEZN, RN, CM
--- NOTE | 2023-08-08 11:33 | PN.HOSP_ITS ---
Reason for Visit Reason for Visit: Diagnoses Sepsis, unspecified organism (08/07/23) Obesity, unspecified (08/07/23) Hypo-osmolality and hyponatremia (08/07/23) Tubulo-interstitial nephritis, not specified as acute or chronic (08/07/23) Patient's noncompliance with other medical treatment and regimen due to unspecified reason (08/07/23) Presence of urogenital implants (08/07/23) Other specified postprocedural states (08/07/23) Subjective Subjective Patient admitted yesterday evening for worsening right-sided abdominal pain and flank pain with nausea and malaise. Patient follows with Dr. Stock, recently had lithotripsy and right ureteral stent placed for kidney stone about 2 weeks ago. Had the stent removed about 1 week ago. Was given antibiotics to take after lithotripsy but he apparently only took them for 1 day. He reported worsening pain and infection symptoms over the past 3 to 4 days prior to admission. On admit he was found to have right kidney nephronia consistent with pyelonephritis. Was also found to have leukocytosis of 21,000, low-grade fever and elevated heart rate concerning for sepsis. I saw patient at the bedside this morning. Patient was mildly fatigued appearing but otherwise laying back comfortably in bed, conversing normally, in no acute distress. He reported mild right-sided flank pain currently but stated this was much improved from overnight. He denied any current fevers or chills. He generally stated that he felt moderately better since starting antibiotics on admission. He denied any pain or discomfort with urine output. No other acute concerns at this time. Objective Data Objective Data Vital Signs: Vital Signs Temp Pulse Resp BP Pulse Ox O2 Del Method 100.0 F H 101 H 16 123/66 H 95 Room Air 08/08/23 09:01 08/08/23 09:01 08/08/23 09:01 08/08/23 09:01 08/08/23 09:01 08/08/23 09:25 Oxygen Delivery Method Room Air Weight: 94.347 kg Body Mass Index (BMI) 31.6 Intake & Output: Intake and Output for Last 24 Hours 08/06/23 08/07/23 08/08/23 23:59 23:59 23:59 Intake Total 2050 / 2050 1050 / 1050 Output Total 500 / 500 400 / 400 Balance 1550 / 1550 650 / 650 Lab / Micro Data 08/08/23 08:09 08/08/23 08:05 Labs: Laboratory Results - last 24 hr 08/07/23 19:10: WBC 21.0 H, RBC 4.66, Hgb 14.5, Hct 39.9 L, MCV 85.6, MCH 31.1, MCHC 36.3 H, RDW Std Deviation 38.4, RDW Coeff of Jacki 12.3, Plt Count 141 L, MPV 10.9, Immature Gran % (Auto) 1.100 H, Neut % (Auto) 86.3 H, Lymph % (Auto) 4.0 L , Chambers % (Auto) 7.8, Eos % (Auto) 0.2, Baso % (Auto) 0.6, Absolute Neuts (auto) 18.1 H, Absolute Lymphs (auto) 0.83, Nucleated RBC % 0, Differential Comment SCANNED, Diff Path Review June, Sodium 128 L, Potassium 3.7, Chloride 96 L, Carbon Dioxide 25.0, Anion Gap 7, BUN 30 H, Creatinine 1.14, Estim Creat Clear Calc 70.39, Est GFR (MDRD) Af Amer 82, Est GFR (MDRD) Non-Af 68, BUN/Creatinine Ratio 26.3 H, Glucose 127 H, Lactic Acid 1.2, Calcium 8.5, Phosphorus 2.7, Magnesium 2.1, Total Bilirubin 2.10 H, AST 41 H, ALT 31, Alkaline Phosphatase 91, Troponin I High Sens 13, Total Protein 7.0, Albumin 2.9 L, Globulin 4.1, A lbumin/Globulin Ratio 0.7 L, Prealbumin 7.9 L 08/07/23 19:22: Urine Color Yellow, Urine Clarity Sl. Cloudy, Urine pH 6.0, Ur Specific Left Hand 1.015, Urine Protein 500 H, Urine Glucose (UA) Normal, Urine Ketones 5 H, Urine Occult Blood 150 H, Urine Nitrite Negative, Urine Bilirubin 1 H, Urine Urobilinogen 4 H, Ur Leukocyte Esterase 25 H, Urine RBC 5-10 SEEN, Urine WBC 0-5 SEEN, Ur Squamous Epith Cells 0-5 SEEN, Amorphous Sediment 1+ URATE, Urine Bacteria 0 SEEN, Urine Mucus 0 SEEN 08/07/23 22:35: Lactic Acid 1.7 08/08/23 08:05: Sodium 128 L, Potassium 3.5, Chloride 98, Carbon Dioxide 23.0, Anion Gap 7, BUN 22 H, Creatinine 1.00, Estim Creat Clear Calc 79.87, Est GFR (MDRD) Af Amer 96, Est GFR (MDRD) Non-Af 80, BUN/Creatinine Ratio 22.1 H, G lucose 114 H, Calcium 7.7 L 08/08/23 08:09: WBC 14.1 H, RBC 4.06 L, Hgb 13.0, Hct 35.2 L, MCV 86.7, MCH 32.0, MCHC 36.9 H, RDW Std Deviation 39.2, RDW Coeff of Jacki 12.3, Plt Count 117 L, MPV 10.9 Radiography Diagnostic Testing: Radiology Impression Chest X-Ray 08/07/23 19:20 IMPRESSION: No radiographic evidence of acute cardiopulmonary disease. Electronically Signed: Hill Sullivan MD at 19:58 EDT , Abdomen/Pelvis CT 08/07/23 20:14 IMPRESSION: Focal masslike area of decreased enhancement in the right kidney which may represent lobar nephronia. There are other patchy areas of decreased enhancement in the right kidney compatible with pyelonephritis. There is no evidence of an abscess. No other acute abnormalities are identified. Electronically Signed: Hill Sullivan MD at 21:09 EDT , Physical Exam Const alert, oriented x3 and no apparent distress Constitutional Narrative: Pleasant elderly male, obese, mildly fatigued appearing, otherwise laying comfortably in bed, conversing normally, no acute distress. General Appearance: cooperative and comfortable HEENT normocephalic, head/scalp atraumatic, hearing grossly normal bilaterally, nasal mucous membranes and turbinates normal and moist oral mucous membranes Eyes PERRL, EOMs intact bilaterally and conjunctivae normal Neck full ROM Chest inspection of chest normal Resp normal respiratory effort, normal air movement, no use of accessory muscles and clear to auscultation bilaterally Cardio regular rate, regular rhythm, no murmurs and peripheral pulses 2+ throughout GI normal to inspection, nondistended, normoactive bowel sounds, soft to palpation, non-tender and non-distended Narrative: Mild right-sided CVA tenderness noted. Back/Spine normal ROM Extremity normal to inspection, full ROM and no pedal edema Skin no rashes or lesions noted Neuro no focal motor deficits and no sensory deficits noted Speech: speech normal Psych mental status grossly normal Assessment & Plan Assessment/Plan (1) Pyelonephritis of right kidney: (2) Hyponatremia: PLAN: Plan Patient is a 68-year-old male who presented [facility] ED on 08/07/2023 with worsening right-sided flank pain and malaise. 1. Right-sided pyelonephritis after recent right-sided kidney stone with lithotripsy and ureteral stent placement with removal ? CT abdomen pelvis on admit showed focal masslike area of decreased enhancement in right kidney likely representing lobar nephronia, along with other patchy areas of decreased enhancement in right kidney compatible with pyelonephritis. Recently had right sided lithotripsy and ureteral stent placement with subsequent removal by Dr. Stock, did not complete recommended course of antibiotics. Had low-grade fever with leukocytosis on admit but otherwise did not meet sepsis criteria. UA mildly infectious appearing. Urine culture preliminarily growing 11-25K GPC enterococcus, sensitivities pending. Has had improvement in symptoms and significant improvement in leukocytosis on IV Zosyn, will continue this for now. 2. Hyponatremia ? Sodium 128 on admit, repeat sodium 128 on hospital day 2. Last sodium was 135 on 07/26/2023; only sodium value available prior to that was 138 back in 2021. Chloride borderline low on admit. Unclear etiology, may be due to mild dehydration but cannot rule out some component of SIADH due to pain. Notably was given normal saline on admit with no change in sodium level. Importantly, no change in mental status. Will follow-up a.m. BMP. 3. Mildly elevated LFTs ? T. bili 2.10, AST 41 on admit. LFTs otherwise normal. Unclear etiology, no previous LFTs available for comparison. Follow-up a.m. LFTs. Chronic medical conditions: ? Obesity: BMI 31 on admit. Encouraged lifestyle modifications. Complicates hospital course, care and prognosis. ? Hypertension: Borderline hypotensive to normotensive on admit. Holding home lisinopril for now. DVT prophylaxis: Heparin subcu CODE STATUS: Full code, unverified Expected disposition: Home, 1 to 2 days Total clinical time spent by myself addressing the patient's medical issues, reviewing all the data, and collaborating with patient's care team: 35 minutes. Charges/Coding Visit Charges Inpatient E&M: 74084 Subs Hosp L2
--- NOTE | 2023-08-08 12:31 | CASEMGMT ---
Patient does not have a Healthcare Power of [employer] Officer or a Healthcare Living Will. Per admission questions patient is not interested in documents. Shelley ORDONEZ
[2023-08-08 13:45] LABS: Pathologist Review Reviewed
[2023-08-09 03:26] VITALS: O2SAT 87
[2023-08-09 03:30] VITALS: BP 129/69; PULSE 85; RESP 16; TEMP 37.1; O2SAT 94
[2023-08-09] MEDS: Piperacil/Tazobactam 3.375 GM in 0.9% Normal Saline (50mL MB+) 50 ML IV (05:51)
[2023-08-09 07:47] LABS: ALB/GLOB Ratio 0.7 RATIO (0.9-2.4); AST(SGOT) 51 U/L (15-37); Alanine Aminotransfer ALT/SGPT 43 U/L (16-61); Albumin, Serum 2.4 g/dL (3.2-5.0); Alkaline Phosphatase 85 U/L (45-117); Anion Gap 3 (5-15); BUN 17 mg/dL (7-18); BUN/Creat Ratio 17.2 RATIO (10-20); Chloride 98 mmol/L (98-107); Creatinine, Serum 0.99 mg/dL (0.70-1.30); EST Glomerular Filtration Rate 80 mL/min (>60); Est Glom Filt Rate - Afr Amer 97 mL/min (>60); Estimated Creatinine Clearance 80.68 ml/min; Globulin 3.5 g/dL (2.2-4.2); Glucose 107 mg/dL (74-106); Potassium 3.5 mmol/L (3.5-5.1); Protein, Total 5.9 g/dL (6.4-8.2); Sodium Level 129 mmol/L (136-145)
[2023-08-09 09:30] VITALS: BP 135/72; PULSE 82; RESP 16; TEMP 37; O2SAT 93
[2023-08-09] MEDS: Ascorbic Acid 500 MG Tablet 1000 MG PO (09:35)
[2023-08-09] MEDS: Lactobacillis Acidophilus 2 CAP PO (09:35)
[2023-08-09] MEDS: Zinc Sulfate 50 mg zinc (220 mg) ORAL capsule PO (09:35)
[2023-08-09] MEDS: Cholecalciferol (Vit D3) 125 MCG CAPSULE (5,000 UNITS) PO (09:35)
[2023-08-09 09:55] LABS: Hematocrit 35.9 % (40-54); Hemoglobin 12.9 g/dL (13.0-16.5); Mean Corp Hgb Conc 35.9 g/dL (32-36); Mean Corpuscular Hgb 31.9 pg (27.0-32.0); Mean Corpuscular Volume 88.6 fL (80-94); Platelet Count 120 K/mm3 (150-450); RBC Distribution Width CV 12.7 % (11.6-14.6); RBC Distribution Width SD 41.7 fl (35.1-43.9); Red Blood Count 4.05 M/mm3 (4.6-6.2); White Blood Count 12.2 K/mm3 (4.4-11.0)
[2023-08-09 10:54] VITALS: O2SAT 97
--- NOTE | 2023-08-09 12:35 | PCM.DC ---
Discharge Instructions Diet Discharge Diet: No restrictions Activity Discharge Activity: No Restrictions Follow Up Care Test Results: Test results from this visit will be discussed in further detail at your follow-up appointment, if applicable. Discharge Plan Admission Admit Date/Time: 08/07/23 21:52 Primary Reason for Your Visit: Pyelonephritis Attending Provider: Terll Newell Primary Care Provider: Laura Castelan Consulting Providers: Shantanu Montesinos Discharge Orders/Prescriptions Prescriptions: George Dempsey-S.therm 175 mg Capsule 2 cap PO BID 8 Days Qty: 32 0RF levofloxacin 500 mg tablet 500 mg PO DAILY 8 Days Qty: 8 0RF ondansetron 4 mg tablet,disintegrating 4 mg PO Q8H PRN (Reason: nausea and vomiting) 5 Days Qty: 15 0RF Continued lisinopril 10 mg tablet 10 mg PO DAILY Referrals / Follow Up: Laura Castelan DO [Primary Care Provider] - Disposition Disposition (needs filled in before D/C Order can be placed): Home, Self Care
--- NOTE | 2023-08-09 12:38 | PCM.DC.SUM ---
Providers Date of Admission: 08/07/23 Date of Discharge: 08/09/23 Primary Care Physician: Dr. Laura Castelan, DO Reason For Visit: PYELONEPHRITIS WITH POSSIBLE SEPSIS AND MEDICAL NO Diagnosis Discharge Diagnosis (1) Pyelonephritis of right kidney: Status: Acute Code(s): N12 - Tubulo-interstitial nephritis, not specified as acute or chronic (2) Hyponatremia: Status: Acute Code(s): E87.1 - Hypo-osmolality and hyponatremia Medications at Discharge Home Medications lisinopril 10 mg tablet 10 mg PO DAILY 08/07/23 L.acidophil,salivari-Bifido bifidum-Strep thermoph 175 mg capsule 2 cap PO BID 8 days #32 caps 08/09/23 levofloxacin 500 mg tablet 500 mg PO DAILY 8 days #8 tabs 08/09/23 ondansetron 4 mg disintegrating tablet 4 mg PO Q8H PRN nausea and vomiting 5 days #15 tabs 08/09/23 Hospital Course Operations None Procedures EKG and - (Chest x-ray, CT abdomen pelvis with IV contrast) Summary of Care Provided Minutes Spent on Discharge: 35 Hospital Course: Patient is a 68-year-old male who presented [facility] ED on 08/07/2023 with worsening right-sided flank pain and malaise. Hospital course as noted below. Patient discharged home in stable condition on 08/08. 1. Right-sided pyelonephritis after recent right-sided kidney stone with lithotripsy and ureteral stent placement with removal ? CT abdomen pelvis on admit showed focal masslike area of decreased enhancement in right kidney likely representing lobar nephronia, along with other patchy areas of decreased enhancement in right kidney compatible with pyelonephritis. Recently had right sided lithotripsy and ureteral stent placement with subsequent removal by Dr. Stock, did not complete recommended course of antibiotics. Had low-grade fever with leukocytosis on admit but otherwise did not meet sepsis criteria. UA mildly infectious appearing. Urine culture preliminarily grew 11-25K GPC enterococcus, sensitive to everything but tetracyclines. Had great improvement in symptoms and in leukocytosis on IV Zosyn. Discharged on Levaquin 500 mg daily for 8 days to complete a 10-day course of antibiotics total. 2. Hyponatremia, stable ? Sodium 128 on admit, repeat sodium 128 on hospital day 2. Appears that sodium level was normal to low normal on prior labs. Sodium 129 on day of discharge. Unclear etiology, may be due to mild dehydration versus small component of SIADH due to pain. Importantly, no change in mental status during hospitalization. Recommend repeat BMP in 1 week to reassess sodium level. 3. Mildly elevated LFTs, improving ? T. bili 2.10, AST 41 on admit. LFTs otherwise normal. Unclear etiology, no previous LFTs available for comparison. LFTs improving on day of discharge, no need to monitor further. Chronic medical conditions: ? Obesity: BMI 31 on admit. Encouraged lifestyle modifications. Complicates hospital course, care and prognosis. ? Hypertension: Borderline hypotensive to normotensive on admit, home lisinopril was held during hospitalization. Okay to resume on discharge. Total clinical time spent by myself addressing the patient's medical issues, reviewing all the data, and collaborating with patient's care team: 35 minutes. Physical Exam Const alert, oriented x3 and no apparent distress Constitutional Narrative: Pleasant elderly male, obese, mildly fatigued appearing, otherwise laying comfortably in bed, conversing normally, no acute distress. General Appearance: cooperative and comfortable HEENT normocephalic, head/scalp atraumatic, hearing grossly normal bilaterally, nasal mucous membranes and turbinates normal and moist oral mucous membranes Eyes PERRL, EOMs intact bilaterally and conjunctivae normal Neck full ROM Chest inspection of chest normal Resp normal respiratory effort, normal air movement, no use of accessory muscles and clear to auscultation bilaterally Cardio regular rate, regular rhythm, no murmurs and peripheral pulses 2+ throughout GI normal to inspection, nondistended, normoactive bowel sounds, soft to palpation, non-tender and non-distended Narrative: Mild right-sided CVA tenderness noted, stable. Back/Spine normal ROM Extremity normal to inspection, full ROM and no pedal edema Skin no rashes or lesions noted Neuro no focal motor deficits and no sensory deficits noted Speech: speech normal Psych mental status grossly normal Weight / BMI Weight Weight: 94.347 kg Body Mass Index (BMI) 31.6 ABG / Lab / Microbiology Data 08/09/23 06:32 08/09/23 06:32 Laboratory: Laboratory Results - last 24 hr 08/07/23 19:10: Diff Path Review Reviewed 08/09/23 06:32: WBC 12.2 H, RBC 4.05 L, Hgb 12.9 L, Hct 35.9 L, MCV 88.6, MCH 31.9, MCHC 35.9, RDW Std Deviation 41.7, RDW Coeff of Jacki 12.7, Plt Count 120 L, MPV 11.0, Sodium 129 L, Potassium 3.5, Chloride 98, Carbon Dioxide 28.0, Anion Gap 3 L, BUN 17, Creatinine 0.99, Estim Creat Clear Calc 80.68, Est GFR (MDRD) Af Amer 97, Est GFR (MDRD) Non-Af 80, BUN/Creatinine Ratio 17.2, Glucose 107 H, Calcium 8.0 L, Total Bilirubin 1.20 H, AST 51 H, ALT 43, Alkaline Phosphatase 85, Total Protein 5.9 L, Albumin 2.4 L, Globulin 3.5, Albumin/Globulin Ratio 0.7 L Microbiology: Microbiology 08/07/23 19:22 Urine, Clean Catch Urine Culture - Final Enterococcus faecalis D/C Instructions Discharge Diet: No restrictions Meaningful Use Info Meaningful Use Meaningful Use Diagnoses (Choose all that apply): None applicable Ischemic Stroke Statin Dosing Therapy Reference: STATIN DOSE THERAPY REFERENCE: * Patients > 75 years receive moderate or high dose statin therapy. * Patients 75 years or YOUNGER should receive HIGH intensity statin dose unless contraindicated. You will be required to document reason for non-treatment if statin daily dose does not meet guidelines. HIGH DOSE STATIN THERAPY DAILY Atorvastatin > than or = to 40 mg Rosuvastatin > than or = to 20 mg Amlodipine + Atorvastatin > than or = to 2.5/40 mg Ezetimibe + Simvastatin 10/80 mg Simvastatin 80mg Discharge Plan Admission Admit Date/Time: 08/07/23 21:52 Primary Reason for Your Visit: Pyelonephritis Attending Provider: Trell Newell Primary Care Provider: Laura Castelan Consulting Providers: Shantanu Montesinos Discharge Orders/Prescriptions Prescriptions: Marty Dempseybif-S.therm 175 mg Capsule 2 cap PO BID 8 Days Qty: 32 0RF levofloxacin 500 mg tablet 500 mg PO DAILY 8 Days Qty: 8 0RF ondansetron 4 mg tablet,disintegrating 4 mg PO Q8H PRN (Reason: nausea and vomiting) 5 Days Qty: 15 0RF Continued lisinopril 10 mg tablet 10 mg PO DAILY Referrals / Follow Up: Laura Castelan DO [Primary Care Provider] - Disposition Disposition (needs filled in before D/C Order can be placed): Home, Self Care Charges/Coding Visit Charges Inpatient E&M: 81763 Disch Hosp >30min
--- NOTE | 2023-08-09 13:16 | CASEMGMT ---
Patient has order for therapy. RN CM in to discuss needs at discharge. Patient denies needs or help at discharge. Patient had no further questions or concerns.
--- NOTE | 2023-08-09 13:49 | PHA.DC.MC.R ---
Pharmacy [facility] has performed discharge medication reconciliation and counseling for this patient. 1. LACTOBACILLUS 2C PO BID X 8 DAYS 2. LEVOFLOXACIN 500MG PO DAILY X 8 DAYS 3. ONDANSETRON 4MG PO Q8H PRN NAUSEA/VOMITING The patient's discharge medication list was reviewed for discrepancies and discrepancies were resolved. The patient was counseled on the following discharge medications and changes in medications for homegoing were reviewed. The Reason for Use, instructions for use, and potential side effects were reviewed for all new medications. The patient's questions regarding all of their medications were answered. The patient was able to verbally demonstrate an understanding of their discharge medications. Patient counseled by pharmacy coordinatorPaula. Medications at Discharge Home Medications lisinopril 10 mg tablet 10 mg PO DAILY 08/07/23 L.acidophil,salivari-Bifido bifidum-Strep thermoph 175 mg capsule 2 cap PO BID 8 days #32 caps 08/09/23 levofloxacin 500 mg tablet 500 mg PO DAILY 8 days #8 tabs 08/09/23 ondansetron 4 mg disintegrating tablet 4 mg PO Q8H PRN nausea and vomiting 5 days #15 tabs 08/09/23
[2023-08-09 14:09] VITALS: BP 145/71; PULSE 87; RESP 17; O2SAT 96
== END 2023-08-09 15:46 | disposition home or self-care (01) | DRG 690 ==
LOC: ED 19:55 → PCU 22:31
PROVIDERS: Admitting Provider Internal Medicine; Emergency Provider Emergency Medicine; PCP Internal Medicine; Visit Provider Hospitalist
DX: N12 Tubulo-interstitial nephritis, not specified as acute or chronic (principal); E87.1 Hypo-osmolality and hyponatremia; D69.6 Thrombocytopenia, unspecified; I10 Essential (primary) hypertension; R11.2 Nausea with vomiting, unspecified; E80.7 Disorder of bilirubin metabolism, unspecified; E86.0 Dehydration; E66.9 Obesity, unspecified; N20.0 Calculus of kidney; Z68.31 Body mass index [BMI] 31.0-31.9, adult; Z91.199 Patient's noncompliance with other medical treatment and regimen due to unspecified reason; Z79.899 Other long term (current) drug therapy; T36.96XA Underdosing of unspecified systemic antibiotic, initial encounter; Z91.148 Patient's other noncompliance with medication regimen for other reason
CPT/HCPCS: 36415; 71045; 74177; 80048; 80053; 81001; 83605; 83735; 84100; 84134; 84484; 85025; 85027; 87040; 87077; 87086; 87088; 87186; 93005; 94762; 97802; 99283; J7030; J7040; J7050; A4216; J2405

== ENCOUNTER → 2023-12-23 | Outpatient (CLI) | payer OTHER, SELFPAY ==
--- NOTE | 2023-12-23 19:01 | CT_ITS ---
EXAM: CT ABDOMEN AND PELVIS WITHOUT INTRAVENOUS CONTRAST CLINICAL INDICATION: calculus of kidney TECHNIQUE: Helically acquired images were obtained of the abdomen and pelvis without intravenous contrast. This CT exam was performed using one or more of the following dose reduction techniques: automated exposure control, adjustment of the mA and/or kV according to patient size, and/or use of iterative reconstruction technique. COMPARISON: 08/07/2023 FINDINGS: LOWER THORAX: Unremarkable. Lung bases are clear. No cardiomegaly. No significant pericardial effusion. ABDOMEN: LIVER: Unremarkable. Homogeneous. GALLBLADDER AND BILE DUCTS: Gallbladder is contracted and there are several gallstones present. There is no inflammation. No gallbladder distention or wall edema. No intra- or extrahepatic biliary ductal dilation. PANCREAS: Unremarkable. No focal cystic mass. SPLEEN: Unremarkable. Normal size without focal cystic or solid mass. ADRENALS: Unremarkable. No nodules. KIDNEYS AND URETERS: There is a nonobstructing calyceal stone in the right kidney. Normal renal size and position. STOMACH AND BOWEL: Sigmoid diverticulosis with no evidence of diverticulitis. No stomach or bowel distention. PELVIS: APPENDIX: No evidence of acute appendicitis. BLADDER: Unremarkable. REPRODUCTIVE: Unremarkable as visualized. No mass. ABDOMEN and PELVIS: INTRAPERITONEAL SPACE: Unremarkable. No ascites or other fluid collection. No free air. BONES/JOINTS: Unremarkable. No suspicious lytic or blastic abnormality. SOFT TISSUES: Unremarkable. No discrete abdominal or pelvic wall hernia. VASCULATURE: Unremarkable. Abdominal aorta is non-dilated. LYMPH NODES: Unremarkable. No enlarged lymph nodes. CT/Abdomen/Pelvis without Cont IMPRESSION: No acute findings in the abdomen or pelvis. Electronically Signed: Hill Sullivan MD at 0:04 EST ,
== END | disposition home or self-care (01) ==
PROVIDERS: PCP Internal Medicine; Referring Provider Urology; Visit Provider Urology
DX: N20.0 Calculus of kidney (principal)
CPT/HCPCS: 74176

== ENCOUNTER → 2024-07-03 | Outpatient (CLI) | payer OTHER, SELFPAY ==
--- NOTE | 2024-07-03 14:40 | RAD_ITS ---
PROCEDURE: ABDOMEN SINGLE VIEW 07/03/2024 REASON FOR EXAM: CALCILUS OF KIDNEY TECHNIQUE: Single view abdomen. 2 total images COMPARISON: None available FINDINGS: 6 mm calcification projects over the interpolar aspect of the right renal shadow possibly representing a renal stone. Adjacent colonic gas and stool. No gaseous distention of bowel. No calcification seen along the course of the right ureter or pelvis. Multilevel lumbar spondylosis. Bilateral hip osteoarthrosis. RAD/Abdomen Single View IMPRESSION: 6 mm calcification projects over the interpolar aspect of the right renal shado w possibly representing a renal stone. Adjacent colonic gas and stool. No calcification seen along the course of the right ureter or pelvis. Reading Location: [id number]
== END | disposition home or self-care (01) ==
LOC: RAD 14:32
PROVIDERS: PCP Internal Medicine; Referring Provider Urology; Visit Provider Urology
DX: N20.2 Calculus of kidney with calculus of ureter (principal)
CPT/HCPCS: 74018